=== PATIENT | male | born 1940 ===

== ENCOUNTER 2018-04-23 14:42 | Inpatient (IN) | payer MEDICARE, OTHER ==
[~2018-04-23] VITALS: Ht 167.6 cm; Wt 64.0 kg
[2018-04-23] MEDS ORDERED: DIVA125C2 PO (15:03)
[2018-04-23] MEDS ORDERED: ACET-73 PO (15:03)
[2018-04-23] MEDS ORDERED: TRAZ-182 PO (15:03)
[2018-04-23] MEDS ORDERED: DONE10TA11 PO (15:03)
[2018-04-23] MEDS ORDERED: OXCA150T5 PO (15:03)
[2018-04-23] MEDS ORDERED: QUET50TA PO (15:03)
[2018-04-23] MEDS ORDERED: ASPI81TA31 PO (15:03)
[2018-04-23] MEDS ORDERED: BENA40TA67 PO (15:03)
[2018-04-23] MEDS ORDERED: PIOG30TA10 PO (15:03)
[2018-04-23] MEDS ORDERED: CYAN10009 PO (15:03)
--- NOTE | 2018-04-23 17:20 | NUR ---
TRANSFERED PT TO FLOOR IN STABLE CONDITION. PT REMAINED CALM AND COMFORTABLE DURING THE ER STAY.
[2018-04-23 17:30] VITALS: BP 145/63
[2018-04-23] MEDS ORDERED: MAGNESIUM HYDROXIDE 30 ML LIQUID UDC PO PRN (17:45)
[2018-04-23] MEDS ORDERED: MAG HYDROX/AL HYDROX/SIMETH 30 ML LIQUID UDC PO PRN (17:45)
[2018-04-23 20:30] VITALS: BP 116/75
[2018-04-23] MEDS: BENAZEPRIL HCL 10 MG TABLET PO SCH (20:52)
--- NOTE | 2018-04-24 06:30 | NUR ---
GPS: Remain calm and cooperative. took shower this morning. no agressive behavior noted. assisted with adl's. slept 8:30 hrs through the night. continue monitoring for safety.Resting in bed comfortably.
[2018-04-24 07:30] VITALS: BP 154/74
[2018-04-24] MEDS: ASPIRIN 81 MG TAB.CHEW PO SCH (08:27)
[2018-04-24] MEDS: CYANOCOBALAMIN 1,000 MCG TABLET PO SCH (08:27)
[2018-04-24] MEDS: BENAZEPRIL HCL 10 MG TABLET PO SCH ×2 (08:27→21:25)
[2018-04-24] MEDS: LORAZEPAM 0.5 MG TABLET PO PRN (08:27)
[2018-04-24] MEDS: PIOGLITAZONE HCL 30 MG TABLET PO SCH (08:27)
[2018-04-24 15:53] VITALS: BP 144/79
[2018-04-24] MEDS: TRAZODONE 50 MG TABLET PO SCH (16:36)
[2018-04-24] MEDS: VALPROIC ACID 250 MG/5 ML LIQUID UDC PO SCH (16:36)
[2018-04-24] MEDS: QUETIAPINE FUMARATE 25 MG TABLET PO SCH (16:36)
[2018-04-24] MEDS: OXCARBAZEPINE 150 MG TABLET PO SCH (16:36)
[2018-04-24 21:00] VITALS: BP 137/76
[2018-04-25 07:30] VITALS: BP 109/69
[2018-04-25] MEDS: VALPROIC ACID 250 MG/5 ML LIQUID UDC PO SCH ×2 (08:36→17:28)
[2018-04-25] MEDS: QUETIAPINE FUMARATE 25 MG TABLET PO SCH ×3 (08:37→17:28)
[2018-04-25] MEDS: BENAZEPRIL HCL 10 MG TABLET PO SCH ×2 (08:37→20:50)
[2018-04-25] MEDS: TRAZODONE 50 MG TABLET PO SCH ×3 (08:38→17:27)
[2018-04-25] MEDS: ASPIRIN 81 MG TAB.CHEW PO SCH (08:38)
[2018-04-25] MEDS: CYANOCOBALAMIN 1,000 MCG TABLET PO SCH (08:38)
[2018-04-25] MEDS: OXCARBAZEPINE 150 MG TABLET PO SCH ×2 (08:38→17:28)
[2018-04-25] MEDS: PIOGLITAZONE HCL 30 MG TABLET PO SCH (08:39)
--- NOTE | 2018-04-25 14:12 | NUR ---
Initial Discharge Plan: The pt. came from [facility] [[address], [place] [address]; ]. Per Scar MAYO [ ], she would like the pt. to return there upon discharge. SW Wiping Cloth Cutter spoke with retail pricing coordinator, Julian at [facility], and they stated that the pt. may return when ready. child welfare social worker will continue to collaborate with patient, patient DPOA,and MD on a safe and proper discharge.
[2018-04-25] MEDS: LORAZEPAM 0.5 MG TABLET PO PRN (14:25)
--- NOTE | 2018-04-25 14:28 | NUR ---
Firearms Report: woodworker helper completed and submitted a [employer] firearms report for a 5150 DTO certification.
[2018-04-25 16:00] VITALS: BP 113/64
--- NOTE | 2018-04-25 16:42 | NUR ---
Process group note: GOAL: Patient will actively participate in the group discussion of the day or listen respectfully to other peers responses. INTERVENTION: Social Work Care Advocate invited patient to participate in a group discussion held from 2:00-2:50 pm in the activities room. CORPORATE RELATIONS MANAGER and Social Work Care Advocate facilitated a group discussion regarding life experiences and valuable life lessons. RESPONSE: Patient joined the group for about 10 minutes. Although the pt. was unable to participate in the activity, he was able to quietly and respectfully listen to his peers sharing. Patient remained calm and cooperative throughout activity. Patient eventually became restless and began wandering. Pt. was slightly redirectable and SW Care Advocate helped him navigate to his room. PLAN: Patient will be invited to attend the next group discussion. Addendum: 05/02/18 at 1154 by CELI GARCIA Amendment: INTERVENTION: Social Work Care Advocate invited patient to participate in a group discussion held from 2:00-2:50 pm in the activities room. Social Work Care Advocate facilitated a group discussion regarding life experiences and valuable life lessons.
[2018-04-25 20:00] VITALS: BP 137/72
[2018-04-25] MEDS: TEMAZEPAM 7.5 MG CAPSULE PO PRN (21:33)
[2018-04-26 07:30] VITALS: BP 105/61
[2018-04-26] MEDS: ASPIRIN 81 MG TAB.CHEW PO SCH (08:40)
[2018-04-26] MEDS: QUETIAPINE FUMARATE 25 MG TABLET PO SCH (08:41)
[2018-04-26] MEDS: OXCARBAZEPINE 150 MG TABLET PO SCH ×2 (08:41→17:14)
[2018-04-26] MEDS: BENAZEPRIL HCL 10 MG TABLET PO SCH ×2 (08:42→20:29)
[2018-04-26] MEDS: CYANOCOBALAMIN 1,000 MCG TABLET PO SCH (08:42)
[2018-04-26] MEDS: PIOGLITAZONE HCL 30 MG TABLET PO SCH (08:43)
[2018-04-26] MEDS: VALPROIC ACID 250 MG/5 ML LIQUID UDC PO SCH ×2 (08:43→17:15)
[2018-04-26] MEDS: TRAZODONE 50 MG TABLET PO SCH ×3 (08:43→17:14)
[2018-04-26] MEDS: LORAZEPAM 0.5 MG TABLET PO PRN (08:56)
[2018-04-26] MEDS ORDERED: LORAZEPAM 2 MG/1 ML VIAL IV ONE (12:14)
[2018-04-26] MEDS ORDERED: OLANZAPINE 10 MG VIAL IM ONE (12:15)
--- NOTE | 2018-04-26 12:21 | NUR ---
Gps/Group Therapist- Dr Abigail Avilez was called, informed of patient > agitation, not redirectable, gets irritable, ,labile mood , on 1:1 Nursing supervision, wanders around , orders received.
[2018-04-26] MEDS ORDERED: QUETIAPINE FUMARATE 25 MG TABLET PO SCH (13:00)
--- NOTE | 2018-04-26 13:50 | NUR ---
Gps/Medical Record Clerk- Patient fell asleep, after lunch, girlfriend was in at lunch visiting. Continue to monitor safety , remains with sitter.Unable to administer IM meds. ordered by Dr Avilez ,patient calmed down and fell asleep will continue to assess, monitor behavior.
[2018-04-26 16:00] VITALS: BP 111/58
[2018-04-26] MEDS: QUETIAPINE FUMARATE 100 MG TABLET PO SCH ×2 (16:31→17:14)
[2018-04-26 20:17] VITALS: BP 120/55
[2018-04-27] MEDS: LORAZEPAM 0.5 MG TABLET PO PRN ×2 (02:56→20:08)
--- NOTE | 2018-04-27 03:05 | NUR ---
Patient was agitated and started yelling. Ativan 0.5 mg tab given. Continue to monitor.
--- NOTE | 2018-04-27 07:25 | NUR ---
Gps/Wet Pour Mixer- Patient with aggressive behavior, as he was redirected to not to come in the Nurses station, Patient tried to hit staff on the chest , difficulty redirecting patient , staff assisted patient back to his room, remains with a sitter , patient combative, monitor safety.
[2018-04-27 07:30] VITALS: BP 112/91
[2018-04-27] MEDS ORDERED: LORAZEPAM 2 MG/1 ML VIAL IM ONE (07:30)
[2018-04-27] MEDS ORDERED: OLANZAPINE 10 MG VIAL IM ONE (07:30)
--- NOTE | 2018-04-27 07:30 | NUR ---
Gps/Spa Coordinator- Charge Nurse on the warehouse shift supervisor called Dr Avilez, informed of patient's behavior, orders received.
[2018-04-27] MEDS: CYANOCOBALAMIN 1,000 MCG TABLET PO SCH (09:00)
[2018-04-27] MEDS: VALPROIC ACID 250 MG/5 ML LIQUID UDC PO SCH ×2 (09:00→18:01)
[2018-04-27] MEDS: ASPIRIN 81 MG TAB.CHEW PO SCH (09:00)
[2018-04-27] MEDS: TRAZODONE 50 MG TABLET PO SCH ×3 (09:00→18:01)
[2018-04-27] MEDS: OXCARBAZEPINE 150 MG TABLET PO SCH ×2 (09:00→18:01)
[2018-04-27] MEDS: PIOGLITAZONE HCL 30 MG TABLET PO SCH (09:00)
[2018-04-27] MEDS: BENAZEPRIL HCL 10 MG TABLET PO SCH ×2 (09:00→20:08)
[2018-04-27] MEDS: QUETIAPINE FUMARATE 100 MG TABLET PO SCH ×3 (09:00→18:01)
--- NOTE | 2018-04-27 12:35 | NUR ---
Gps./Rhit- per Repair Table Operator , patient's , verbalized she does not want patient receiving injections to calm him down, was informed of patient s' aggressive behavior towards staff. requesting to talk to Dr Avilez.
[2018-04-27 15:27] VITALS: BP 142/96
[2018-04-27 20:31] VITALS: BP 136/76
--- NOTE | 2018-04-27 21:18 | NUR ---
Received pt in bed, agitated and restless. Reoriented pt. AAO x1. 1:1 sitter at bedside for safety. No acute distress noted. No c/o pain or discomfort, FLACC 0. Denies S/I. All due med and PRN Ativan given as ordered. Safety measures maintained. Will continue to monitor.
[2018-04-27] MEDS: TEMAZEPAM 7.5 MG CAPSULE PO PRN (22:37)
[2018-04-28 07:30] VITALS: BP 92/52
[2018-04-28] MEDS: BENAZEPRIL HCL 10 MG TABLET PO SCH ×2 (09:00→20:19)
[2018-04-28] MEDS: OXCARBAZEPINE 150 MG TABLET PO SCH ×2 (09:00→17:46)
[2018-04-28] MEDS: QUETIAPINE FUMARATE 100 MG TABLET PO SCH ×3 (09:00→17:46)
[2018-04-28] MEDS: TRAZODONE 50 MG TABLET PO SCH (09:00)
[2018-04-28] MEDS: CYANOCOBALAMIN 1,000 MCG TABLET PO SCH (09:00)
[2018-04-28] MEDS: VALPROIC ACID 250 MG/5 ML LIQUID UDC PO SCH ×2 (10:46→17:46)
[2018-04-28] MEDS: PIOGLITAZONE HCL 30 MG TABLET PO SCH (10:47)
[2018-04-28] MEDS: ASPIRIN 81 MG TAB.CHEW PO SCH (10:48)
[2018-04-28 16:00] VITALS: BP 102/61
[2018-04-28 19:58] VITALS: BP 99/63
--- NOTE | 2018-04-29 06:37 | NUR ---
GPS: REMAIN CALM AND COOPERATIVE WITH CARE. CONTINUE ON 1:1 SITTER @ BEDSIDE FOR SAFETY. ASSISTED WITH ADL'S. TURN Q 2 HRS FOR SKIN SAFETY AND COMFORT. SLEPT 9:30 HRS THROUGH THE NIGHT. CONTINUE PLAN OF CARE.
[2018-04-29 08:01] VITALS: BP 123/72
[2018-04-29] MEDS: QUETIAPINE FUMARATE 100 MG TABLET PO SCH ×3 (08:24→17:18)
[2018-04-29] MEDS: ASPIRIN 81 MG TAB.CHEW PO SCH (08:24)
[2018-04-29] MEDS: VALPROIC ACID 250 MG/5 ML LIQUID UDC PO SCH ×3 (08:24→17:18)
[2018-04-29] MEDS: BENAZEPRIL HCL 10 MG TABLET PO SCH ×2 (08:25→20:19)
[2018-04-29] MEDS: CYANOCOBALAMIN 1,000 MCG TABLET PO SCH (08:25)
[2018-04-29] MEDS: OXCARBAZEPINE 150 MG TABLET PO SCH ×2 (08:25→17:18)
[2018-04-29] MEDS: PIOGLITAZONE HCL 30 MG TABLET PO SCH (08:26)
[2018-04-29] MEDS: LORAZEPAM 0.5 MG TABLET PO PRN (10:19)
[2018-04-29 16:44] VITALS: BP 114/71
[2018-04-29 20:22] VITALS: BP 112/61
[2018-04-29] MEDS: TEMAZEPAM 7.5 MG CAPSULE PO PRN (20:50)
[2018-04-30] MEDS: LORAZEPAM 0.5 MG TABLET PO PRN ×3 (05:05→12:45)
--- NOTE | 2018-04-30 06:26 | NUR ---
Slept 6.45 hrs given a shower this am 1-1- remain at his bedside for safety. Given prn ativan 0.5 mg po prior to shower.
[2018-04-30 07:30] VITALS: BP 119/71
[2018-04-30] MEDS: QUETIAPINE FUMARATE 100 MG TABLET PO SCH ×4 (09:24→16:10)
[2018-04-30] MEDS: ASPIRIN 81 MG TAB.CHEW PO SCH (09:24)
[2018-04-30] MEDS: OXCARBAZEPINE 150 MG TABLET PO SCH ×2 (09:24→16:10)
[2018-04-30] MEDS: VALPROIC ACID 250 MG/5 ML LIQUID UDC PO SCH ×3 (09:24→17:33)
[2018-04-30] MEDS: BENAZEPRIL HCL 10 MG TABLET PO SCH ×2 (09:24→20:25)
[2018-04-30] MEDS: PIOGLITAZONE HCL 30 MG TABLET PO SCH (09:25)
[2018-04-30] MEDS: CYANOCOBALAMIN 1,000 MCG TABLET PO SCH (09:26)
--- NOTE | 2018-04-30 14:02 | NUR ---
received patient on bed , with one on one sitter for safety, patient seen walking in hallway, patient easily irritated and aggressive toward the staff and sitter, PRN meds given as ordered, med compliant continue monitor for aggressive behavior
[2018-04-30 15:37] VITALS: BP 92/57
[2018-04-30] MEDS: ACETAMINOPHEN 325 MG TABLET PO PRN (16:10)
--- NOTE | 2018-04-30 16:55 | NUR ---
Discharge Planning: toll test desk worker called and spoke with community service officer, Susan Brower [[phone]], at [facility]. toll test desk worker informed Susan that per Dr. Avilez, patient will likely be discharged soon. toll test desk worker was able to schedule patient to get reassessed tomorrow, 05/01/2018, by ANOOP Arellano at [facility]. Susan further stated that once patient is scheduled for discharge that [facility] will be able to provide transportation. toll test desk worker will continue to follow-up.
[2018-04-30 20:30] VITALS: BP 123/75
--- NOTE | 2018-05-01 04:49 | NUR ---
Patient received in bed, remained 1-1 sitter for safety. No sign of acute distress or SOB was noted. . Complaint with medication. Patient was stable and had a good sleep last night. All medication given and well tolerated. Safety measures maintained. Will continue to monitor and endorse to the day shift nurse accordingly.
[2018-05-01 07:30] VITALS: BP 139/73
[2018-05-01] MEDS: PIOGLITAZONE HCL 30 MG TABLET PO SCH (09:00)
[2018-05-01] MEDS: ACETAMINOPHEN 325 MG TABLET PO PRN (10:25)
[2018-05-01] MEDS: CYANOCOBALAMIN 1,000 MCG TABLET PO SCH (10:25)
[2018-05-01] MEDS: OXCARBAZEPINE 150 MG TABLET PO SCH ×2 (10:25→17:16)
[2018-05-01] MEDS: QUETIAPINE FUMARATE 100 MG TABLET PO SCH ×3 (10:25→17:16)
[2018-05-01] MEDS: LORAZEPAM 0.5 MG TABLET PO PRN ×2 (10:26→19:25)
[2018-05-01] MEDS: TEMAZEPAM 7.5 MG CAPSULE PO PRN (10:26)
[2018-05-01] MEDS: ASPIRIN 81 MG TAB.CHEW PO SCH (10:26)
[2018-05-01] MEDS: BENAZEPRIL HCL 10 MG TABLET PO SCH ×2 (10:27→21:00)
[2018-05-01] MEDS: VALPROIC ACID 250 MG/5 ML LIQUID UDC PO SCH ×3 (10:33→17:16)
--- NOTE | 2018-05-01 13:15 | NUR ---
Dr. Avilez notiified holding 1300 meds due to medication administration of ativan and restoril earlier in the morning. No new orders. Patient resting with eyes closed, intermittency opening eye. patient responds to name, and follow commands. Will continue to monitor.
--- NOTE | 2018-05-01 13:50 | NUR ---
Discharge planning: floorworker distributor called and left voicemail with patient domestic partner, Scar Sterling [[phone]], regarding discharge plan and patient expectancy to discharge soon.
--- NOTE | 2018-05-01 14:17 | NUR ---
Discharge Planning: Patient was re-assessed today by ANOOP Taylor, at [facility]. Per Brandon, he stated he would call social media developer with decision as to if patient can return to facility when ready for a discharge. aircraft worker received voicemail from Brandon stating that patient PCP at [facility] would call Dr. Avilez, however, Brandon provided no decision on if patient can return to [facility]. aircraft worker then called and spoke with Susan [[phone]], community organization worker, with [facility] at 12:20pm, who stated she would like to e-mail a "Tattoodo" report that was done on patient at [facility] so that PCP, Dr. Hull, can communicate with Dr. Avilez about it. Per Susan, she stated she would call back in an hour. aircraft worker received e-mail and informed Dr. Avilez. Per Dr. Avilez, he called and left a voicemail for Dr. Hull. Dr. Avilez also would like to initiate DC plan as soon as patient has a safe placement for discharge. aircraft worker, having not received any phone call from Adele or Susan, called the facility at 2:00pm and spoke with ASAD Joaquin/ water quality assistant, about patient being able to return to facility. Per Emani, patient is unable to return to the facility at this time due to patient "physically aggressive behavior" and being in a ankit-chair. aircraft worker requested that Emani inform patient domestic partner, Scar, that patient is no longer accepted at [facility]. Emani agreed she would call Scar. aircraft worker now tasked with finding patient alternative placement. aircraft worker has sent fas referrals to [facility] [ ; ; move coordinator: Sunitha] and [facility] [ ; ; Lacing String Cutter: Brandon], both of which are locked facilities. aircraft worker waiting for call back from yard coordinator's. aircraft worker also waiting forming yardage control operator back from [facility] [see previous DC planning note]. Addendum: 05/01/18 at 1507 by CELI AMADO SW Additional information: aircraft worker received call back from Brandon, yard coordinator, at [facility] stating that patient has been accepted. aircraft worker also received confirmation from Sunitha, yard coordinator, at [facility] stating that patient has been accepted.
--- NOTE | 2018-05-01 15:30 | NUR ---
Discharge planning: overhead line worker left second voicemail with patient domestic partner, Scar [[phone]], regarding patient discharge plan. overhead line worker awaiting call back.
[2018-05-01 16:33] VITALS: BP 104/56
--- NOTE | 2018-05-01 18:45 | NUR ---
Begining of shift, patient was aggressive toward the staff members and scratched and strike her with his hand. Patient was redirected to his room. After eating breakfast, patient was sleeping through out the day. Patient became more active during the evening and eating dinner, walking around the unit with the STORES DESPATCH HAND, and compliant with medication administration. patient no longer had an aggressive behaivor afterwards. Patient shows labile emotions. Will continue to monitor closely and endorse POC to manufacturing supervisor 2nd shift.
[2018-05-01 20:00] VITALS: BP 121/65
[2018-05-02 07:30] VITALS: BP 148/75
[2018-05-02] MEDS: ACETAMINOPHEN 325 MG TABLET PO PRN (07:48)
[2018-05-02] MEDS: VALPROIC ACID 250 MG/5 ML LIQUID UDC PO SCH ×3 (08:14→16:13)
[2018-05-02] MEDS: BENAZEPRIL HCL 10 MG TABLET PO SCH ×2 (08:15→20:01)
[2018-05-02] MEDS: ASPIRIN 81 MG TAB.CHEW PO SCH (08:15)
[2018-05-02] MEDS: QUETIAPINE FUMARATE 100 MG TABLET PO SCH ×3 (08:15→16:13)
[2018-05-02] MEDS: CYANOCOBALAMIN 1,000 MCG TABLET PO SCH (08:16)
[2018-05-02] MEDS: OXCARBAZEPINE 150 MG TABLET PO SCH ×2 (08:16→16:13)
[2018-05-02] MEDS: PIOGLITAZONE HCL 30 MG TABLET PO SCH (08:17)
[2018-05-02] MEDS: LORAZEPAM 0.5 MG TABLET PO PRN ×2 (08:28→19:55)
--- NOTE | 2018-05-02 11:18 | NUR ---
Discharge Planning: storage worker received voicemail [dated 05/01/2018; 4:41pm] from patient domestic partner, Scar [[phone]], stating that she did not agree with patient being discharged and that she was very upset that she was not notified. storage worker called Scar back and told her that two voicemail were left indicating that a discussion needed to be had regarding discharge planning. storage worker assured Scar that patient would not be discharged without next of kin being notified first. storage worker explained to Scar that patient has not been accepted back to [facility], which she was aware of as they called her yesterday evening. storage worker continued to explain that as patient now has no placement, that new placement will be needed. storage worker told Scar that SNF placements have been found at [facility] and [facility] and are accepting of patient. Scar was apprehensive of halfway placement. Scar then told director social that she has been working with placement agent, Jose [[phone]], at [facility]. Per Scar, Jose has found two board and care options for patient: [facility] and [facility]. Per Scar, she is going to visit these placements tomorrow. storage worker told Scar that patient case is time sensitive as patient is medically and behaviorally at baseline and ready to be discharged as placement has been found. Scar became very upset at director social and yelled saying "He [patient] is not ready!". Scar further states that she will not agree to a discharge today and that she will tour all the facilitates tomorrow and then call director social. Scar further stated that she "may not have a decision" tomorrow and that discharge may need to be pushed further until she can find a "decent" placement. Scar then stated that she needed to go as she had a client waiting. Conversation ended at this point. storage worker then called Jose, placement agent, at [facility]. Per Jose, he has found two board and care options for patient including [facility] and [facility]. Per Jose, he will call facilities to come and assess patient today. storage worker will await patient assessment. storage worker to follow-up with carpet finishing supervisor on case.
--- NOTE | 2018-05-02 13:35 | NUR ---
Discharge planning: rack room worker called and spoke with Scar [[phone]], patient domestic partner, regarding discharge plan. Scar expressed that she was upset that patient is being scheduled to discharge because she feels patient is not ready. rack room worker again [see previous DC planning note 05/01/2018] explained that Dr. Avilez will be giving a discharge order for the patient tomorrow. Scar states that she will not allow for patient to be discharged. rack room worker explained that if she blocks discharge, that she may be served with a Medicare letter of denial. rack room worker explained what this meant and that she may have a financial responsibility for patient stay starting tomorrow. Scar stated "It can't be anymore than what I pay at [facility]". rack room worker also informed Scar that she can appeal the letter of denial by calling [employer] [[address], [place] [address]; Telephone Number: or TTY [phone]]. Scar then stated that she would "definitely appeal". Conversation ended with Jeffreyluis angel stating she would "try" and visit two facilities before noon and call social media community manager with update, despite social media community manager encouraging her to visit all facilities and make a decision on placement. rack room worker will await for callback from Scar at noon tomorrow, 05/03/2018.
--- NOTE | 2018-05-02 15:23 | NUR ---
Discharge planning: conditioning room worker received call from Scar [[phone]], inquiring which SNFs patient has been accepted to. conditioning room worker provided her with the names of accepting SNFs including [facility] [ ] and [facility] [phone]]. conditioning room worker also provided Scar with two [facility] including [facility] [[phone]] and [facility] [[phone]]. conditioning room worker then facilitated further conversation about medicare letter of denial [see previous DC planning note]. conditioning room worker discussed that if she were to lose appeal with medicare that she would be responsible for paying the rest of patients hospital stay at the medicare rate which can be upwards of $1000/day. Scar stated she understood. conditioning room worker will continue to follow-up with patient and family.
--- NOTE | 2018-05-02 15:45 | NUR ---
PROCESS GROUP NOTE: Patients were asked to discuss their thoughts on what knowledge or "life lessons" they would pass on to a younger generation. Subjective: "..." Objective: social worker psychiatric arrived at patient bedside to invite patient to group. Patient was sitting in ankit chair with 1:1 sitter near by. Patient did not respond to health and social care teacher question of attending group. Assessment: Patient appeared to be confused and did not make eye contact. Plan: social worker psychiatric will continue to encourage group attendance as scheduled. social worker psychiatric will continue to provide encouragement and support during MHU admission
[2018-05-02 16:00] VITALS: BP 129/69
--- NOTE | 2018-05-02 17:07 | NUR ---
received patient on chair, with 1:1 sitter, patient easily agitated, poor impulse control, walks around the hallway and trying to open doors , patient denies of any pain , PRN medication given for agitation, will continue monitor
[2018-05-02 19:59] VITALS: BP 158/82
--- NOTE | 2018-05-02 20:30 | NUR ---
RECEIVED PATIENT IN HER ROOM IN BED. HE IS NOTED SLEEPING, BUT EASILY AROUSABLE. A/O X 1. HE CONTINUE ON 1:1 SUPERVISION FOR SAFETY. NOTED CALM AND PLEASANT UPON APPROACHED. BLUNTED AFFECT, LABILE BX NOTED. HE WAS COMPLIANT WITH [facility] MEDICATION REGIMENT. 1:1 SITTER REPORTED PATIENT HAVING CONSTIPATION. MOM 30ML WERE GIVEN FOR CONSTIPATION PER NURSING ASSESSMENT. PATIENT WAS REASSURED FOR HIS SAFETY. WILL CONTINUE TO MONITOR CLOSELY.
[2018-05-03 07:30] VITALS: BP 113/63
[2018-05-03] MEDS: PIOGLITAZONE HCL 30 MG TABLET PO SCH (08:09)
[2018-05-03] MEDS: CYANOCOBALAMIN 1,000 MCG TABLET PO SCH (08:09)
[2018-05-03] MEDS: VALPROIC ACID 250 MG/5 ML LIQUID UDC PO SCH ×2 (08:09→12:44)
[2018-05-03] MEDS: ASPIRIN 81 MG TAB.CHEW PO SCH (08:09)
[2018-05-03 08:10] VITALS: BP 113/63
[2018-05-03] MEDS: OXCARBAZEPINE 150 MG TABLET PO SCH (08:10)
[2018-05-03] MEDS: BENAZEPRIL HCL 10 MG TABLET PO SCH (08:10)
[2018-05-03] MEDS: QUETIAPINE FUMARATE 100 MG TABLET PO SCH ×2 (08:10→12:44)
--- NOTE | 2018-05-03 09:49 | NUR ---
Discharge planning: antisqueak worker called and spoke with Scar [[phone]], patient's domestic partner, this morning at 8:45am to discuss discharge planning. Scar states she has toured [facility] and states "he [patient] is not going to [facility]". Scar further states that every jail facility is "going to be awful" and refuses to place patient in a jail facility. antisqueak worker informed Scar that patient was seen and assessed by Joshua [[phone]], hospitality coordinator of [facility]. Per Jose, [employer] [facility] placement agent working with Scar and Joshua, [facility] will only be able to accept patient if he is discharged with a PRN of Ativan and possibly with a 1:1 caregiver. antisqueak worker has reached out to covering psychiatrist, Dr. De Paz, and head charger for today about getting PRN of Ativan. antisqueak worker waiting to hear back. antisqueak worker asked Scar if she would be willing to have patient go to SNF temporarily while looking for a 1:1 caregiver. Scar again refused to send patient to a SNF. At this point, social media editor requested that Scar call [employer] [ ] to begin process of appealing discharge. Scar agreed and then proceeded to say that she is hiring an Elder Investment Banking Analyst and that she will contact every newspaper and news agency stating "this will be heard". antisqueak worker then requested to hear back from Scar by noon after she tours [facility] today and they salt washer harvesting station a final answer as to if patient can discharge to their facility today. antisqueak worker did tell Scar that if we do not hear from her by noon, that she may be served with a Medicare letter of denial. Scar is aware and in agreement with this. antisqueak worker will continue to follow-up with all involved parties including Scar, [facility], and accepting SNF palcements.
--- NOTE | 2018-05-03 10:24 | NUR ---
Discharge Planning: automotive worker received call back from Scar at 10:17am stating that she has filed an appeal with [employer] [ ] [Case #[id number]]. automotive worker then faxed Medicare letter of denial to Jeffreyluis angel at the fax number [[phone]] she provided. Successful fax return has been received and placed in patient chart. Addendum: 05/03/18 at 1036 by CELI GARCIA Additional information: automotive worker also requested that Scar fax back the "acknowledgement of receipt" form. Scar agreed to fax form back to .
--- NOTE | 2018-05-03 11:38 | NUR ---
Discharge Planning: grounds maintenance worker faxed requested medical records to [facility] [phone: ; fax: ] for appeal case #[id number]. Fax included notice of medicare non-coverage, discharge order, face sheet, admission order, history & physical, physicians orders, physician progress notes, discharge planning notes, emergency room notes, last two days of nursing notes, and last two days of medications and labs. grounds maintenance worker awaiting successful fax confirmation. Addendum: 05/03/18 at 1217 by CELI GARCIA grounds maintenance worker received successful fax return and placed in patient chart.
--- NOTE | 2018-05-03 14:02 | NUR ---
DISCHARGE NOTE: Patient will be discharged to [facility] [[address], [place] [address]; ] and transportation will be provided by the facility at 3:00pm. Transportation was confirmed by Adan, phys assistant/RN, at [facility]. Patients domestic partner/DPRACHEL, Scar [[phone]] have been notified of discharge and is aware and agreeable with plan. Patient is alert and oriented x1, denies SI/HI, and is aware and agreeable with discharge plans. Patient will follow-up with Dr. Marcus Hull (primary care physician) at the facility. Patient currently does not have a psychiatrist so a list of psychiatrist referrals have been provided to patient GAEL. In case patient is unable to make an appointment with outpatient psychiatrist, patient has been provided with a referral to [facility] [ [place] [address]; ] where patient can walk-in for appointment Monday thru Monday anytime between 8:00pm-5:00pm. Patient has been provided with outpatient mental health resources to [facility] [ ], [facility] [ ], and the National Suicide Prevention Lifeline [ ]. Patient has signed the homeless consent form and a copy has been placed in patient chart. Addendum: 05/03/18 at 1424 by CELI GARCIA Correction: Patient will be transported to [facility] by Scar domestic partner/DPOA of patient, and she will be accompanied by [facility] caregiver, Jc. Addendum: 05/03/18 at 1438 by CELI GARCIA Correction: Patient is NOT homeless and did NOT sign the homeless waiver form.
--- NOTE | 2018-05-03 14:08 | NUR ---
Gps/Manufacturing Specialist- Discharge planning in progress, will be discharged back to [facility] . All belongings given back to patient. Scar (GAEL) aware of the discharge plan. [facility] to provide transportation. Patient in no distress, no complaints noted, in good spirit.
--- NOTE | 2018-05-03 14:21 | NUR ---
Gps/Agency Manager-GAEL (Scar) will be be transporting patient back to [facility] care [facility], as plan changed.
[2018-05-03] MEDS: LORAZEPAM 0.5 MG TABLET PO PRN (14:55)
--- NOTE | 2018-05-03 14:55 | NUR ---
Gps/Right Of Way Man- Patient's DPOA Scar , in to pick up attendant patient, reviewed discharged instructions, medications diet, safety emphasized , patient will be followed by Dr Marcus Hull (PMD), Scar verbalized understanding. All belongings was return back to patient. No distress, no complaints noted. Discharged to [facility] via private car.
--- NOTE | 2018-05-03 15:48 | NUR ---
Social work note: tea tree farm worker called and spoke with Sindhu [ ], [facility], regarding case #[id number]. tea tree farm worker informed Sindhu that patient has been discharged from facility today. Per Sindhu, patient discharging does not drop the appeal/case. Sindhu states that in order for case to be dropped, the person who made the appeal must call. tea tree farm worker then called Scar [[phone]] and left voicemail informing her of this information and providing her with [facility] number should she choose to drop appeal.
--- NOTE | 2018-05-04 11:17 | NUR ---
Late Entry for 05/03/18 Social Work Discharge Note: Dina MSW notified this fiction and nonfiction writer prose that patient's significant other/DPOA was appealing discharge and threatened to call news crew. This clinician called Scar [phone] and discussed her concerns and the Medicare appeal process. She said she was rejecting [facility]. She was looking into a small board and care for pt. and needed time. This fiction and nonfiction writer prose assured her that pt. could not be transported unit Medicare ruling from her appeal occurred. She seemed satisfied and this fiction and nonfiction writer prose advised her that she was available for further discussion or support.
== END 2018-05-03 15:10 | DRG 885 ==
LOC: ER 14:42 → GPS 17:21
PROVIDERS: ADMIT Psychiatry & Neurology Psychiatry; ATTEND Internal Medicine
DX: F29 Unspecified psychosis not due to a substance or known physiological condition (principal); F02.81 Dementia in other diseases classified elsewhere, unspecified severity, with behavioral disturbance; G93.40 Encephalopathy, unspecified; G30.9 Alzheimer's disease, unspecified; M10.9 Gout, unspecified; Z90.49 Acquired absence of other specified parts of digestive tract; E11.9 Type 2 diabetes mellitus without complications; M19.90 Unspecified osteoarthritis, unspecified site; K57.90 Diverticulosis of intestine, part unspecified, without perforation or abscess without bleeding; I10 Essential (primary) hypertension; F41.9 Anxiety disorder, unspecified; Z79.82 Long term (current) use of aspirin
CPT/HCPCS: 36415; 93005; A4663; J2060; J2358